=== PATIENT | female | born 1930 | race Two or more races ===

== ENCOUNTER 2016-06-11 07:06 | Inpatient (IN) | payer MEDICARE, MEDICAID ==
[2016-06-06 10:33] LABS: Basophils # (auto) 0 uL; Basophils % (auto) 0.3 % (0.0-2.0); Eosinophils # (auto) 0.1 uL; Eosinophils % (auto) 1.1 % (0.0-7.0); Hematocrit 36.7 % (36.0-46.0); Hemoglobin 11.9 g/dL (12.2-16.2); Lymphocytes # (auto) 1.7 uL; Lymphocytes % (auto) 28.9 % (10.0-50.0); Mean Corpuscular Hemoglobin 28.6 pg (28.0-32.0); Mean Corpuscular Hgb Conc. 32.5 g/dL (32.0-36.0); Mean Corpuscular Volume 88.2 fL (80.0-100.0); Mean Platelet Volume 8.5 fL (7.4-10.4); Monocytes # (auto) 0.3 uL; Monocytes % (auto) 5.5 % (0.0-12.0); Neutrophils # (auto) 3.7 uL; Neutrophils % (auto) 64.2 % (37.0-80.0); Platelet Count (auto) 185 10^3/uL (140-450); Red Cell Distribution Width 16.1 % (11.6-16.0); White Blood Cell 5.8 10^3/uL (4.4-10.8)
[2016-06-06 10:37] LABS: Urine Bilirubin Negative (Negative); Urine Blood Negative /uL (Negative); Urine Color Yellow (Yellow); Urine Glucose Normal (Normal); Urine Ketone Negative (Negative); Urine Nitrite Negative (Negative); Urine RBC None Seen /hpf (0 - 4); Urine Squamous Epithelial Cell FEW /hpf (<5); Urine Urobilinogen Normal (Negative); Urine pH 5.5 (5.0-8.0)
[2016-06-06 10:43] LABS: INR 0.98 (0.9-1.15); Prothrombin Time 10.1 sec (9.37-12.3)
[2016-06-06 10:51] LABS: Albumin 3.8 g/dL (3.4-5.0); BUN/Creatinine Ratio 15.6; Bilirubin, Total 0.4 mg/dL (0.2-1.0); Calcium 8.9 mg/dL (8.5-10.1); Potassium 4.2 mmol/L (3.5-5.1); Total Protein 8.1 g/dL (6.4-8.2)
[~2016-06-11] VITALS: Ht 162.6 cm; Wt 77.2 kg
[~2016-06-11 07:06] MED LIST: ALPR0.5T7 PO; ASPI-498 PO; CHOL1TAB42 PO; FAMO-12 PO; FELO10TA PO; FLUT250M2 INH; FOLI1TAB6 PO; FURO20TA3 PO; ISOS30TA4 PO; LORA-622 PO; METO25TA5 PO; NITR0.4S29 SL; POLY33504 PO; PROAIR 90 MCG IN; SIMV-8 PO; TRAZ100T2 PO
[2016-06-11] MEDS ORDERED: ceFAZolin 1GM/50ML D5W 50 ML IV ONE (07:16)
[2016-06-11] MEDS ORDERED: POVIDONE IODINE 10 % TOPICAL OINT 30GM TOP ONE (08:06)
[2016-06-11] MEDS ORDERED: LIDOCAINE HCL 2 %PF INJ 10ML AMP IJ ONE (08:16)
[2016-06-11] MEDS ORDERED: MIDAZOLAM HCL 1MG/1ML-2 ML VIAL ONE (08:16)
[2016-06-11] MEDS ORDERED: ROCURONIUM 10MG/ML 10ML VIAL IV ONE (08:16)
[2016-06-11] MEDS ORDERED: fentaNYL CITRATE 100 MCG/2 ML VL ONE (08:16)
[2016-06-11] MEDS ORDERED: ETOMIDATE (2MG/ML) 20ML VIAL IV ONE (08:16)
[2016-06-11] MEDS ORDERED: SODIUM CHLORIDE LOCK 20 ML ONE (08:16)
[2016-06-11] MEDS ORDERED: HYDROmorphone HCL 2 MG/ML VL ONE (08:16)
[2016-06-11] MEDS ORDERED: ALBUTEROL SULF 2.5 MG/0.5ML(0.5%) NEB SOLN NEB ONE (08:45)
[2016-06-11] MEDS ORDERED: ALBUTEROL SULF 2.5 MG/0.5ML(0.5%) NEB SOLN ONE (08:45)
[2016-06-11] MEDS ORDERED: PROPOFOL 10 MG/ML 20 ML IV ONE (08:55)
[2016-06-11] MEDS ORDERED: NEOSTIGMINE 1 MG/ML INJ (10mg/10ML VIAL) ONE (10:24)
[2016-06-11] MEDS ORDERED: GLYCOPYRROLATE 0.2 MG/ML 1ML VIAL ONE (10:24)
[2016-06-11] MEDS ORDERED: HYDROmorphone HCL 2 MG/ML VL IV PRN ×2 (11:00→11:15)
[2016-06-11 11:04] VITALS: BP 134/74
[2016-06-11] MEDS ORDERED: PROMETHAZINE HCL 25 MG/ML 1ML IM ONE (11:15)
[2016-06-11 13:00] VITALS: BP 146/58
[2016-06-11] MEDS ORDERED: MORPHINE SULF INJ 2 MG/ML SYRINGE 1ML IV PRN (14:00)
[2016-06-11] MEDS ORDERED: FAMOTIDINE 20 MG TAB PO ONE (14:00)
[2016-06-11] MEDS ORDERED: ALBUTEROL SULF 2.5 MG/0.5ML(0.5%) NEB SOLN NEB PRN (14:00)
[2016-06-11] MEDS ORDERED: HYDROcodone-ACET 5/325MG TAB PO PRN (14:00)
[2016-06-11] MEDS ORDERED: METOPROLOL TARTRATE 25 MG TAB PO ONE (14:00)
[2016-06-11] MEDS ORDERED: ONDANSETRON HCL 4 MG/2 ML VIAL IV PRN (14:00)
[2016-06-11] MEDS ORDERED: NITROGLYCERIN 0.4 MG SL TAB SL PRN (14:00)
[2016-06-11] MEDS: D5W/SOD CHL 0.45%/KCL 20MEQ 1,000 ML IV SCH (14:06)
[2016-06-11] MEDS: ceFAZolin 1GM/50ML D5W 50 ML IV SCH ×2 (14:18→23:00)
[2016-06-11 15:00] VITALS: BP 135/56
[2016-06-11] MEDS: METOPROLOL TARTRATE 25 MG TAB PO SCH (23:01)
[2016-06-11] MEDS: ALPRAZolam 0.5 MG TAB PO PRN (23:02)
[2016-06-12 02:50] VITALS: BP 135/56
[2016-06-12 05:03] LABS: Basophils # (auto) 0 uL; Eosinophils # (auto) 0 uL; Hematocrit 31.6 % (36.0-46.0); Hemoglobin 10.1 g/dL (12.2-16.2); Lymphocytes # (auto) 0.4 uL; Lymphocytes % (auto) 7.4 % (10.0-50.0); Mean Corpuscular Hemoglobin 28.5 pg (28.0-32.0); Mean Corpuscular Hgb Conc. 32.1 g/dL (32.0-36.0); Mean Corpuscular Volume 88.9 fL (80.0-100.0); Mean Platelet Volume 8.2 fL (7.4-10.4); Monocytes # (auto) 0.4 uL; Monocytes % (auto) 5.8 % (0.0-12.0); Neutrophils # (auto) 5.3 uL; Neutrophils % (auto) 86.8 % (37.0-80.0); Platelet Count (auto) 162 10^3/uL (140-450); Red Cell Distribution Width 15.9 % (11.6-16.0); White Blood Cell 6.1 10^3/uL (4.4-10.8)
[2016-06-12 05:25] LABS: Calcium 8.1 mg/dL (8.5-10.1); Potassium 5.1 mmol/L (3.5-5.1)
[2016-06-12 05:27] LABS: BUN/Creatinine Ratio 15.5
[2016-06-12] MEDS: D5W/SOD CHL 0.45%/KCL 20MEQ 1,000 ML IV SCH ×2 (05:44→14:20)
[2016-06-12] MEDS: ceFAZolin 1GM/50ML D5W 50 ML IV SCH ×3 (05:45→22:26)
[2016-06-12] MEDS: FAMOTIDINE 20 MG TAB PO SCH (09:34)
[2016-06-12] MEDS: METOPROLOL TARTRATE 25 MG TAB PO SCH (10:00)
[2016-06-12] MEDS ORDERED: amLODIPine BESYLATE 5 MG TAB PO ONE (15:45)
[2016-06-12] MEDS ORDERED: ISOSORBIDE MONONITRATE 60 MG TAB PO ONE (15:45)
[2016-06-12] MEDS ORDERED: FUROSEMIDE 20 MG/2 ML VIAL IV ONE (15:45)
[2016-06-12] MEDS: ALPRAZolam 0.5 MG TAB PO PRN (17:58)
[2016-06-12] MEDS ORDERED: hydrALAZINE HCL 20 MG/ML VL IV PRN (18:15)
[2016-06-12] MEDS ORDERED: TEMAZEPAM 15 MG CAP PO PRN (18:15)
[2016-06-12] MEDS ORDERED: MILK OF MAGNESIA 30ML SUSP PO PRN (18:15)
[2016-06-12] MEDS ORDERED: hydrALAZINE HCL 20 MG/ML VL IV ONE (18:15)
[2016-06-12 18:47] VITALS: BP 155/65
[2016-06-12 21:30] VITALS: BP 176/65
[2016-06-12] MEDS: DOCUSATE SOD 100 MG CAP PO SCH (22:00)
[2016-06-13 05:15] VITALS: BP 141/60
[2016-06-13] MEDS: ceFAZolin 1GM/50ML D5W 50 ML IV SCH (05:37)
[2016-06-13 06:41] LABS: Calcium 8.3 mg/dL (8.5-10.1); Potassium 4.6 mmol/L (3.5-5.1)
[2016-06-13 06:43] LABS: BUN/Creatinine Ratio 16.1
[2016-06-13 08:00] VITALS: BP 164/76
[2016-06-13] MEDS: FAMOTIDINE 20 MG TAB PO SCH (09:31)
[2016-06-13] MEDS: DOCUSATE SOD 100 MG CAP PO SCH (09:31)
[2016-06-13] MEDS ORDERED: amLODIPine BESYLATE 5 MG TAB PO SCH (10:00)
[2016-06-13] MEDS ORDERED: ISOSORBIDE MONONITRATE 60 MG TAB PO SCH (10:00)
[2016-06-13 13:00] VITALS: BP 161/90
[2016-06-13 13:11] VITALS: BP 164/76
[2016-06-13 13:16] VITALS: BP 148/87
== END 2016-06-13 14:43 | disposition home or self-care (01) | DRG 582 ==
LOC: SUR 07:06 → TELE-WESTW 07:07
PROVIDERS: ADMIT Surgery; ATTEND Internal Medicine
PROC: 0HBU0ZX Excision of Left Breast, Open Approach, Diagnostic (ICD-10-PCS; 2016-06-11)
PROC: 0HTU0ZZ Resection of Left Breast, Open Approach (ICD-10-PCS; principal; 2016-06-11 09:05)
DX: C50.912 Malignant neoplasm of unspecified site of left female breast (principal); I50.33 Acute on chronic diastolic (congestive) heart failure; I13.0 Hypertensive heart and chronic kidney disease with heart failure and stage 1 through stage 4 chronic kidney disease, or unspecified chronic kidney disease; J96.10 Chronic respiratory failure, unspecified whether with hypoxia or hypercapnia; J44.1 Chronic obstructive pulmonary disease with (acute) exacerbation; N18.3 Chronic kidney disease, stage 3 (moderate); E78.5 Hyperlipidemia, unspecified; I49.8 Other specified cardiac arrhythmias; Z79.82 Long term (current) use of aspirin; Z87.891 Personal history of nicotine dependence; Z98.890 Other specified postprocedural states
CPT/HCPCS: 36415; 71010; 80048; 80053; 81001; 85025; 85610; 85730; 94002; 94640; J0690; J2250; J2704

== ENCOUNTER 2016-06-29 09:21 | Emergency (ER) | payer MEDICARE, MEDICAID ==
[~2016-06-29] VITALS: Ht 154.9 cm; Wt 77.1 kg
[2016-06-29] MEDS ORDERED: SODIUM CHLORIDE 0.9% 250 ML IV ONE (10:55)
[2016-06-29] MEDS ORDERED: METOCLOPRAMIDE HCL 5MG/ml INJ 2ml VIAL IV ONE (11:00)
[2016-06-29] MEDS ORDERED: KETOROLAC TROMETH 30 MG/ML 1ML VIAL IV ONE (11:00)
[2016-06-29 11:16] LABS: Basophils # (auto) 0 uL; Basophils % (auto) 0.7 % (0.0-2.0); Eosinophils # (auto) 0.1 uL; Eosinophils % (auto) 1.4 % (0.0-7.0); Hematocrit 32.4 % (36.0-46.0); Hemoglobin 10.5 g/dL (12.2-16.2); Lymphocytes % (auto) 16.9 % (10.0-50.0); Mean Corpuscular Hemoglobin 28.3 pg (28.0-32.0); Mean Corpuscular Hgb Conc. 32.4 g/dL (32.0-36.0); Mean Corpuscular Volume 87.2 fL (80.0-100.0); Mean Platelet Volume 7.4 fL (7.4-10.4); Monocytes # (auto) 0.3 uL; Monocytes % (auto) 5.7 % (0.0-12.0); Neutrophils # (auto) 4.3 uL; Neutrophils % (auto) 75.3 % (37.0-80.0); Platelet Count (auto) 218 10^3/uL (140-450); Red Cell Distribution Width 15.8 % (11.6-16.0); White Blood Cell 5.7 10^3/uL (4.4-10.8)
[2016-06-29 11:48] LABS: Albumin 3.4 g/dL (3.4-5.0); BUN/Creatinine Ratio 13.3; Bilirubin, Total 0.3 mg/dL (0.2-1.0); Calcium 9.2 mg/dL (8.5-10.1); Magnesium 2.7 mg/dL (1.6-2.6); Total Protein 7.5 g/dL (6.4-8.2)
[2016-06-29 13:30] VITALS: BP 160/62
== END 2016-06-29 18:46 | disposition home or self-care (01) ==
LOC: EDBD 09:21 → ER 09:25
DX: M25.462 Effusion, left knee (principal); M25.461 Effusion, right knee; M17.11 Unilateral primary osteoarthritis, right knee; E83.41 Hypermagnesemia; M81.0 Age-related osteoporosis without current pathological fracture; C50.912 Malignant neoplasm of unspecified site of left female breast; I13.0 Hypertensive heart and chronic kidney disease with heart failure and stage 1 through stage 4 chronic kidney disease, or unspecified chronic kidney disease; N18.3 Chronic kidney disease, stage 3 (moderate); I50.9 Heart failure, unspecified; E78.5 Hyperlipidemia, unspecified; E07.9 Disorder of thyroid, unspecified; Z87.891 Personal history of nicotine dependence; Z79.82 Long term (current) use of aspirin; E66.9 Obesity, unspecified; Z68.32 Body mass index [BMI] 32.0-32.9, adult
CPT/HCPCS: 36415; 71020; 73562; 80053; 83735; 85025; 85049; 93971; 96361; 96374; 96375; 99285; J1885; J2765; J7030

== ENCOUNTER → 2016-08-19 | Outpatient (CLI) | payer MEDICAID, MEDICARE ==
[2016-08-19 15:22] LABS: Body Fluid Polymorphonuclear 23 %
== END | disposition home or self-care (01) ==
LOC: LAB 10:57
DX: M10.00 Idiopathic gout, unspecified site (principal); M25.50 Pain in unspecified joint; M00.9 Pyogenic arthritis, unspecified
CPT/HCPCS: 87070; 89051; 89060

== ENCOUNTER → 2016-10-01 | Outpatient (CLI) | payer MEDICAID, MEDICARE ==
[2016-10-01 10:00] LABS: Basophils # (auto) 0 uL; Basophils % (auto) 0.4 % (0.0-2.0); Eosinophils # (auto) 0.1 uL; Hematocrit 35.5 % (36.0-46.0); Hemoglobin 11.7 g/dL (12.2-16.2); Lymphocytes # (auto) 1.1 uL; Lymphocytes % (auto) 20.2 % (10.0-50.0); Mean Corpuscular Hemoglobin 28.7 pg (28.0-32.0); Mean Corpuscular Volume 86.8 fL (80.0-100.0); Mean Platelet Volume 7.5 fL (7.4-10.4); Monocytes # (auto) 0.3 uL; Neutrophils # (auto) 3.8 uL; Neutrophils % (auto) 72.4 % (37.0-80.0); Platelet Count (auto) 199 10^3/uL (140-450); Red Cell Distribution Width 17.6 % (11.6-16.0); White Blood Cell 5.3 10^3/uL (4.4-10.8)
[2016-10-01 10:56] LABS: Albumin 3.5 g/dL (3.4-5.0); Bilirubin, Total 0.3 mg/dL (0.2-1.0); Calcium 8.2 mg/dL (8.5-10.1); Potassium 4.3 mmol/L (3.5-5.1); Total Protein 8.1 g/dL (6.4-8.2)
== END | disposition home or self-care (01) ==
LOC: LAB 09:45
PROVIDERS: ATTEND Internal Medicine
DX: C50.219 Malignant neoplasm of upper-inner quadrant of unspecified female breast (principal)
CPT/HCPCS: 36415; 80053; 83615; 85025

== ENCOUNTER → 2016-10-22 | Outpatient (CLI) | payer MEDICAID, MEDICARE ==
[2016-10-22 09:11] LABS: Basophils # (auto) 0 uL; Basophils % (auto) 0.3 % (0.0-2.0); Eosinophils # (auto) 0.1 uL; Eosinophils % (auto) 1.2 % (0.0-7.0); Hematocrit 36.2 % (36.0-46.0); Lymphocytes # (auto) 1.1 uL; Mean Corpuscular Hemoglobin 29.3 pg (28.0-32.0); Mean Corpuscular Hgb Conc. 33.3 g/dL (32.0-36.0); Mean Platelet Volume 8.1 fL (7.4-10.4); Monocytes # (auto) 0.3 uL; Neutrophils % (auto) 73.5 % (37.0-80.0); Platelet Count (auto) 209 10^3/uL (140-450); Red Cell Distribution Width 18.3 % (11.6-16.0); White Blood Cell 5.4 10^3/uL (4.4-10.8)
[2016-10-22 09:26] LABS: Urine Bilirubin Negative (Negative); Urine Blood Negative /uL (Negative); Urine Color Yellow (Yellow); Urine Glucose Normal (Normal); Urine Ketone Negative (Negative); Urine Nitrite Negative (Negative); Urine RBC <1 /hpf (0 - 4); Urine Squamous Epithelial Cell FEW /hpf (<5); Urine Urobilinogen Normal (Negative)
[2016-10-22 09:32] LABS: Albumin 3.7 g/dL (3.4-5.0); BUN/Creatinine Ratio 13.6; Bilirubin, Total 0.4 mg/dL (0.2-1.0); Calcium 8.9 mg/dL (8.5-10.1); Potassium 4.4 mmol/L (3.5-5.1); Total Protein 8.2 g/dL (6.4-8.2)
== END | disposition home or self-care (01) ==
LOC: LAB 08:20
DX: N18.4 Chronic kidney disease, stage 4 (severe) (principal); M17.12 Unilateral primary osteoarthritis, left knee
CPT/HCPCS: 36415; 80053; 80061; 81001; 83036; 84443; 85025

== ENCOUNTER → 2016-12-24 | Outpatient (CLI) | payer MEDICARE, MEDICAID ==
[2016-12-24 12:40] LABS: Basophils # (auto) 0 uL; Basophils % (auto) 0.4 % (0.0-2.0); CONDITION Y; Eosinophils # (auto) 0.1 uL; Eosinophils % (auto) 1.5 % (0.0-7.0); Hematocrit 32.9 % (36.0-46.0); Hemoglobin 11.1 g/dL (12.2-16.2); Lymphocytes # (auto) 1.2 uL; Lymphocytes % (auto) 25.2 % (10.0-50.0); Mean Corpuscular Hemoglobin 30.3 pg (28.0-32.0); Mean Corpuscular Hgb Conc. 33.6 g/dL (32.0-36.0); Mean Corpuscular Volume 90.1 fL (80.0-100.0); Mean Platelet Volume 7.9 fL (7.4-10.4); Monocytes # (auto) 0.3 uL; Monocytes % (auto) 6.7 % (0.0-12.0); Neutrophils # (auto) 3.2 uL; Neutrophils % (auto) 66.2 % (37.0-80.0); Platelet Count (auto) 176 10^3/uL (140-450); Red Cell Distribution Width 15.2 % (11.6-16.0); White Blood Cell 4.9 10^3/uL (4.4-10.8)
[2016-12-24 13:15] LABS: Albumin 3.7 g/dL (3.4-5.0); BUN/Creatinine Ratio 15.7; Bilirubin, Total 0.3 mg/dL (0.2-1.0); Calcium 8.2 mg/dL (8.5-10.1); Potassium 5.3 mmol/L (3.5-5.1); Total Protein 7.8 g/dL (6.4-8.2)
== END | disposition home or self-care (01) ==
LOC: LAB 12:08
PROVIDERS: ATTEND Internal Medicine
DX: C50.912 Malignant neoplasm of unspecified site of left female breast (principal)
CPT/HCPCS: 36415; 80053; 83615; 85025

== ENCOUNTER → 2017-02-10 | Outpatient (CLI) | payer MEDICARE, MEDICAID | END | disposition home or self-care (01) | LOC: LAB 10:03 | PROVIDERS: ATTEND Internal Medicine Gastroenterology | DX: R10.30 Lower abdominal pain, unspecified (principal); I11.0 Hypertensive heart disease with heart failure; I50.9 Heart failure, unspecified | CPT/HCPCS: 36415; 82565; 84520 ==

== ENCOUNTER → 2017-03-23 | Outpatient (CLI) | payer MEDICARE, MEDICAID ==
[2017-03-23 12:37] LABS: Basophils # (auto) 0 uL; Basophils % (auto) 0.6 % (0.0-2.0); Eosinophils # (auto) 0.1 uL; Eosinophils % (auto) 2.1 % (0.0-7.0); Hematocrit 33.6 % (36.0-46.0); Hemoglobin 11.2 g/dL (12.2-16.2); Lymphocytes # (auto) 1.1 uL; Lymphocytes % (auto) 23.5 % (10.0-50.0); Mean Corpuscular Hemoglobin 30.8 pg (28.0-32.0); Mean Corpuscular Hgb Conc. 33.4 g/dL (32.0-36.0); Mean Corpuscular Volume 92.2 fL (80.0-100.0); Mean Platelet Volume 8.4 fL (6.9-10.8); Monocytes # (auto) 0.3 uL; Monocytes % (auto) 7.3 % (0.0-12.0); Neutrophils % (auto) 66.5 % (37.0-80.0); Platelet Count (auto) 157 10^3/uL (140-450); Red Cell Distribution Width 15.3 % (11.8-14.3); White Blood Cell 4.5 10^3/uL (4.4-10.8)
[2017-03-23 12:42] LABS: Albumin 3.9 g/dL (3.4-5.0); BUN/Creatinine Ratio 17.2; Bilirubin, Total 0.8 mg/dL (0.2-1.0); Calcium 8.7 mg/dL (8.5-10.1); Potassium 5.3 mmol/L (3.5-5.1); Total Protein 8.1 g/dL (6.4-8.2)
== END | disposition home or self-care (01) ==
LOC: LAB 09:30
PROVIDERS: ATTEND Internal Medicine
DX: C50.912 Malignant neoplasm of unspecified site of left female breast (principal)
CPT/HCPCS: 36415; 80053; 83615; 85025

== ENCOUNTER 2017-04-13 08:25 | Inpatient (IN) | payer MEDICARE, MEDICAID ==
[~2017-04-13] VITALS: Ht 134.6 cm; Wt 71.5 kg
[2017-04-13] MEDS ORDERED: FUROSEMIDE 40 MG/4 ML VIAL IV ONE (08:45)
[2017-04-13 08:52] LABS: Basophils # (auto) 0 uL; Basophils % (auto) 0.5 % (0.0-2.0); Eosinophils # (auto) 0 uL; Hematocrit 34.8 % (36.0-46.0); Hemoglobin 11.6 g/dL (12.2-16.2); Lymphocytes # (auto) 1.1 uL; Lymphocytes % (auto) 23.6 % (10.0-50.0); Mean Corpuscular Hemoglobin 30.8 pg (28.0-32.0); Mean Corpuscular Hgb Conc. 33.3 g/dL (32.0-36.0); Mean Corpuscular Volume 92.4 fL (80.0-100.0); Monocytes # (auto) 0.3 uL; Monocytes % (auto) 6.3 % (0.0-12.0); Neutrophils # (auto) 3.3 uL; Neutrophils % (auto) 68.6 % (37.0-80.0); Nucleated Red Blood Cells % 0.1 %; Platelet Count (auto) 136 10^3/uL (140-450); Red Blood Cells 3.77 10^6/uL (4.0-5.20); Red Cell Distribution Width 14.8 % (11.8-14.3); White Blood Cell 4.8 10^3/uL (4.4-10.8)
[2017-04-13 09:20] LABS: Albumin 3.8 g/dL (3.4-5.0); Bilirubin, Total 0.4 mg/dL (0.2-1.0); Calcium 8.6 mg/dL (8.5-10.1); Magnesium 2.7 mg/dL (1.6-2.6); Potassium 5.1 mmol/L (3.5-5.1); Total Protein 8.1 g/dL (6.4-8.2)
[2017-04-13] MEDS ORDERED: CLO01T PO (11:57)
[2017-04-13] MEDS ORDERED: ANAS1TAB6 PO (11:57)
[2017-04-13] MEDS ORDERED: LISI10TA6 PO (11:57)
[2017-04-13] MEDS ORDERED: ALEN35TA18 PO (11:57)
[2017-04-13] MEDS ORDERED: TRAZ150T79 PO (11:57)
[2017-04-13] MEDS ORDERED: METO-169 PO (11:57)
[2017-04-13] MEDS ORDERED: PANT40TA2 PO (11:57)
[2017-04-13] MEDS ORDERED: NITROGLYCERIN 0.4 MG SL TAB SL PRN (12:00)
[2017-04-13] MEDS ORDERED: HYDROcodone-ACET 5/325MG TAB PO PRN (12:00)
[2017-04-13] MEDS ORDERED: ONDANSETRON HCL 4 MG/2 ML VIAL IV PRN (12:00)
[2017-04-13] MEDS ORDERED: MORPHINE SULFATE 10 MG/ML INJ 1ML SDV IV PRN ×2 (12:00)
[2017-04-13] MEDS ORDERED: ASPirin-EC 81 mg tab PO ONE (12:15)
[2017-04-13] MEDS ORDERED: methylPREDNISolone SOD SUCC 40 MG/ML VL IV ONE (12:15)
[2017-04-13] MEDS ORDERED: METOPROLOL SUCCINATE XL 50 MG TAB PO ONE (12:15)
[2017-04-13] MEDS ORDERED: FUROSEMIDE 20 MG/2 ML VIAL IV ONE (12:30)
[2017-04-13] MEDS: ALBUTEROL SULF 2.5 MG/0.5ML(0.5%) NEB SOLN NEB SCH ×2 (12:50→18:00)
[2017-04-13] MEDS: IPRATROPIUM BROM 0.5 MG/2.5ML INH SOL NEB SCH ×2 (12:50→18:00)
[2017-04-13 13:38] VITALS: BP 183/74
[2017-04-13] MEDS ORDERED: cefTRIAXone 1GM/50ML D5W 50 ML IV ONE (14:00)
[2017-04-13] MEDS ORDERED: amLODIPine BESYLATE 5 MG TAB PO ONE (14:00)
[2017-04-13] MEDS ORDERED: ISOSORBIDE MONONITRATE 60 MG TAB PO ONE (14:00)
[2017-04-13] MEDS ORDERED: ENOXAPARIN SOD 30 MG/0.3 ML SYRINGE SC ONE (14:00)
[2017-04-13] MEDS ORDERED: AZITHROMYCIN 500MG/ 250ML 250 ML IV ONE (14:45)
[2017-04-13] MEDS: DOCUSATE SOD 100 MG CAP PO SCH ×2 (15:30→21:19)
[2017-04-13] MEDS: ATORVASTATIN 20 MG TAB PO SCH (21:19)
[2017-04-13] MEDS: methylPREDNISolone SOD SUCC 40 MG/ML VL IV SCH (21:19)
[2017-04-13] MEDS: ALPRAZolam 0.5 MG TAB PO PRN (21:19)
[2017-04-13 21:30] VITALS: BP 120/57
[2017-04-14] VITALS (8 sets, daily range): BP systolic 136–162; BP diastolic 48–65
[2017-04-14] MEDS: ALBUTEROL SULF 2.5 MG/0.5ML(0.5%) NEB SOLN NEB SCH ×4 (00:23→18:31)
[2017-04-14] MEDS: BUDESONIDE (INHALATION) 0.5 MG/2 ML NEB NEB SCH ×3 (00:23→18:31)
[2017-04-14] MEDS: IPRATROPIUM BROM 0.5 MG/2.5ML INH SOL NEB SCH ×4 (00:23→18:31)
[2017-04-14 07:35] LABS: Basophils # (auto) 0 uL; Basophils % (auto) 0.1 % (0.0-2.0); Eosinophils # (auto) 0 uL; Hematocrit 30.3 % (36.0-46.0); Hemoglobin 10.3 g/dL (12.2-16.2); Lymphocytes # (auto) 0.3 uL; Lymphocytes % (auto) 12.1 % (10.0-50.0); Mean Corpuscular Hemoglobin 31.2 pg (28.0-32.0); Mean Corpuscular Volume 91.6 fL (80.0-100.0); Monocytes # (auto) 0.1 uL; Monocytes % (auto) 2.2 % (0.0-12.0); Neutrophils # (auto) 2.3 uL; Neutrophils % (auto) 85.6 % (37.0-80.0); Nucleated Red Blood Cells % 0.1 %; Platelet Count (auto) 145 10^3/uL (140-450); Red Blood Cells 3.31 10^6/uL (4.0-5.20); Red Cell Distribution Width 14.5 % (11.8-14.3); White Blood Cell 2.7 10^3/uL (4.4-10.8)
[2017-04-14 08:11] LABS: Calcium 8.5 mg/dL (8.5-10.1); Potassium 5.3 mmol/L (3.5-5.1)
[2017-04-14 08:13] LABS: Cholesterol 169 mg/dL (< 200); HDL Cholesterol 65 mg/dL (40-59); LDL Cholesterol 100 mg/dL (< 100); Triglycerides 94 mg/dL (< 150)
[2017-04-14] MEDS ORDERED: METOPROLOL SUCCINATE XL 50 MG TAB PO SCH (10:00)
[2017-04-14] MEDS ORDERED: AZITHROMYCIN 500MG/ 250ML 250 ML IV SCH (10:00)
[2017-04-14] MEDS ORDERED: FUROSEMIDE 20 MG TAB PO SCH (10:00)
[2017-04-14] MEDS: cefTRIAXone 1GM/50ML D5W 50 ML IV SCH (10:12)
[2017-04-14] MEDS: FUROSEMIDE 40 MG/4 ML VIAL IV SCH (10:12)
[2017-04-14] MEDS: DOCUSATE SOD 100 MG CAP PO SCH ×2 (10:13→20:57)
[2017-04-14] MEDS: ASPirin-EC 81 mg tab PO SCH (10:13)
[2017-04-14] MEDS: methylPREDNISolone SOD SUCC 40 MG/ML VL IV SCH (10:13)
[2017-04-14] MEDS: PANTOPRAZOLE 40 MG TAB PO SCH (10:13)
[2017-04-14] MEDS: ENOXAPARIN SOD 30 MG/0.3 ML SYRINGE SC SCH (10:13)
[2017-04-14] MEDS: amLODIPine BESYLATE 5 MG TAB PO SCH (10:14)
[2017-04-14] MEDS: ISOSORBIDE MONONITRATE 60 MG TAB PO SCH (10:14)
[2017-04-14] MEDS ORDERED: DOCUSATE SOD 100 MG CAP PO ONE (10:15)
[2017-04-14] MEDS ORDERED: LACTULOSE 20Gm/30ML SOLN PO ONE (10:15)
[2017-04-14] MEDS ORDERED: AZITHROMYCIN 250 MG TAB PO ONE (15:45)
[2017-04-14] MEDS: ATORVASTATIN 20 MG TAB PO SCH (21:16)
[2017-04-14] MEDS: ALPRAZolam 0.5 MG TAB PO PRN (21:17)
[2017-04-14] MEDS: hydrALAZINE HCL 20 MG/ML VL IV PRN (21:17)
[2017-04-15] MEDS: ALBUTEROL SULF 2.5 MG/0.5ML(0.5%) NEB SOLN NEB SCH ×2 (00:12→05:57)
[2017-04-15] MEDS: IPRATROPIUM BROM 0.5 MG/2.5ML INH SOL NEB SCH ×2 (00:12→05:57)
[2017-04-15] MEDS: hydrALAZINE HCL 20 MG/ML VL IV PRN (04:46)
[2017-04-15 05:52] VITALS: BP 169/71
[2017-04-15 05:56] VITALS: BP 156/61
[2017-04-15] MEDS: BUDESONIDE (INHALATION) 0.5 MG/2 ML NEB NEB SCH (05:57)
[2017-04-15 08:00] VITALS: BP 158/54
[2017-04-15] MEDS: cefTRIAXone 1GM/50ML D5W 50 ML IV SCH (09:00)
[2017-04-15] MEDS ORDERED: AZITHROMYCIN 250 MG TAB PO SCH (10:00)
[2017-04-15] MEDS ORDERED: predniSONE 20 MG TAB PO SCH (10:00)
[2017-04-15] MEDS: DOCUSATE SOD 100 MG CAP PO SCH (10:00)
[2017-04-15] MEDS: ENOXAPARIN SOD 30 MG/0.3 ML SYRINGE SC SCH (10:23)
[2017-04-15] MEDS: FUROSEMIDE 40 MG/4 ML VIAL IV SCH (10:23)
[2017-04-15] MEDS: ASPirin-EC 81 mg tab PO SCH (10:23)
[2017-04-15] MEDS: amLODIPine BESYLATE 5 MG TAB PO SCH (10:24)
[2017-04-15] MEDS: ISOSORBIDE MONONITRATE 60 MG TAB PO SCH (10:25)
[2017-04-15] MEDS: PANTOPRAZOLE 40 MG TAB PO SCH (10:25)
[2017-04-15 10:53] VITALS: BP 158/54
== END 2017-04-15 13:27 | disposition home or self-care (01) | DRG 194 ==
LOC: EDBD 08:25 → EDUNIT# 08:25 → ER 08:25 → TELE 08:26 → TELE-CENTR 18:32
PROVIDERS: ADMIT Internal Medicine; ATTEND Internal Medicine
DX: I13.0 Hypertensive heart and chronic kidney disease with heart failure and stage 1 through stage 4 chronic kidney disease, or unspecified chronic kidney disease (principal); J18.9 Pneumonia, unspecified organism; J96.10 Chronic respiratory failure, unspecified whether with hypoxia or hypercapnia; J44.0 Chronic obstructive pulmonary disease with (acute) lower respiratory infection; Z99.81 Dependence on supplemental oxygen; N18.3 Chronic kidney disease, stage 3 (moderate); J44.1 Chronic obstructive pulmonary disease with (acute) exacerbation; I50.43 Acute on chronic combined systolic (congestive) and diastolic (congestive) heart failure; E83.41 Hypermagnesemia; I73.9 Peripheral vascular disease, unspecified; K21.9 Gastro-esophageal reflux disease without esophagitis; F41.9 Anxiety disorder, unspecified; M19.90 Unspecified osteoarthritis, unspecified site; E78.5 Hyperlipidemia, unspecified; E66.9 Obesity, unspecified; M71.20 Synovial cyst of popliteal space [Baker], unspecified knee; M81.0 Age-related osteoporosis without current pathological fracture; Z79.51 Long term (current) use of inhaled steroids; Z90.12 Acquired absence of left breast and nipple; Z68.39 Body mass index [BMI] 39.0-39.9, adult; Z79.899 Other long term (current) drug therapy; Z85.3 Personal history of malignant neoplasm of breast; Z87.891 Personal history of nicotine dependence
CPT/HCPCS: 36415; 36600; 51702; 71010; 78582; 80048; 80053; 80061; 82805; 83036; 83735; 83880; 84484; 85025; 85379; 93005; 93971; 94640; 94761; 96365; 96368; 96375; J0696